=== PATIENT | female | born 1965 | race Caucasian/White ===

== ENCOUNTER 2020-11-23 21:56 | Emergency (ER) | payer MEDICAID, SELFPAY ==
[2020-11-23 22:24] VITALS: BP 177/110; PULSE 92; RESP 17; O2SAT 99; BMI 24.2
--- NOTE | 2020-11-23 23:13 | PC.NURSE ---
Pt found sitting upright in bed, Bulgarian speaking only. Pt reports receiving a Tetanus shot to right deltoid today, reports redness and pain to site with difficulty swallowing and pain to throat. 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 Pt speaking full sentences, does not appear to be in any distress. Awaiting primary MD jose.
--- NOTE | 2020-11-23 23:52 | PC.NURSE ---
at bedside for primary eval.
[2020-11-24] VITALS: BP 164/95; PULSE 84; RESP 16; TEMP 36.4; O2SAT 98
--- NOTE | 2020-11-24 00:01 | ED_ITS ---
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 Patient received her tetanus shot in the right arm at the PCP office today, patient has been having pain in the side of the injection, feels burning sensation in the left side of the neck, symptoms started after was given a tetanus shot on today at PCP office, patient declined any shortness of breath, decline wheezing, declined abdominal pain or chest pain. No rash, no itching. Related Data Allergies Allergy/AdvReac Type Severity Reaction Status Date / Time No Known Allergies Allergy Verified 11/23/20 22:24 Review of Systems Review of Systems: All other systems are reviewed and are negative Constitutional: Reports as per HPI and Reports no additional constitutional complaints Eyes: Reports as per HPI and Reports no additional eye complaints Reports system reviewed and no additional complaints, except as documented Cardiovascular: Reports as per HPI and Reports no additional cardiovascular complaints Respiratory: Reports as per HPI and Reports no additional respiratory complaints Gastrointestinal: Reports as per HPI and Reports no additional gastrointestinal complaints Genitourinary: Reports no additional female genitourinary complaints Musculoskeletal: Reports no additional musculoskeletal complaints Skin/Breast: Reports system reviewed and no additional complaints, except as docu Psychiatric: Reports no additional psychiatric complaints Endocrine: Reports no additional endocrine complaints Hematologic/Lymphatic: Reports no additional hematologic/lymphatic complaints Allergic/Immunologic: Reports no additional allergic/immunologic complaints Reports system reviewed and no additional complaints, except as documented and Reports Abnormal speech present [facility] Past Medical History Medical History Hypertension Hypothyroid Thyroid nodule Surgical History H/O: hysterectomy Social History Social History Advance Directives: No Patient : No Physical Exam Vital Signs: Vital Signs: Last Vital Signs Pulse 92 11/23/20 22:24 Resp 17 11/23/20 22:24 BP 177/110 H 11/23/20 22:24 Pulse Ox 99 11/23/20 22:24 Body Mass Index 24.2 Vital signs have been reviewed as appeared to be correct. Blood pressure elevated. Heart rate normal. Respiration rate normal. Temperature normal. Oxygen saturation normal. Appearance: Alert. Oriented X3. No acute distress. Head: Normal external exam. Normocephalic. Atraumatic. No Shin signs noted. No raccoon eyes noted Eyes: PERRLA. EOMI. Conjunctiva and sclera normal. Eyelids normal. ENT: TM's Normal. Pharynx normal. Uvula midline. Moist mucous membranes. No trismus noted. No drooling noted. No muffled voice noted. Neck: Normal inspection. Neck supple. FROM. No adenopathy. Thyroid Normal. No meningeal signs. No neck mass noted. CVS: Normal heart rate and rhythm. Heart sound normal. No murmurs noted. Pulses normal throughout. Respiratory: No respiratory distress. Painless inspiration. Breath sounds normal. No wheezes/rales/rhonchi noted. Chest nontender. No accessory muscle usage noted or decreased air movement noted. Abdomen: Soft and nontender. Bowel sounds normal in all 4 quadrants. No distention noted. No organomegaly noted. No visible injury noted. Back: No CVA tenderness. Full range of motion noted. Skin: Skin warm and dry. Normal skin color. Normal skin turgor. No rashes/lesions/lacerations noted. Extremities: No lower extremity edema. Extremities exhibit normal range of motion. Extremities nontender. Neuro: Oriented X 3. Cranial nerve exam: II-XII are grossly intact No motor deficit. No sensory deficit. Reflexes normal. Course Course Course Narrative: Assessment and plan. 55-year-old female came in for a concern of allergic reaction to tetanus shot patient received today at PCP office. Physical exam showed no obvious allergic reaction. Discharge Plan Discharge Clinical Impression: Vaccination complication Qualifiers: Encounter type: initial encounter Qualified Code(s): T88.1XXA - Other complications following immunization, not elsewhere classified, initial encounter Patient Disposition: Home, Self-Care Instructions: Adverse Drug Reaction (ED) Referrals: Shahana Bell NP [Primary Care Provider] - 2 days
[2020-11-24] MEDS: diphenhydrAMINE HCL 25 MG TABLET PO (00:11)
== END 2020-11-24 00:14 | disposition home or self-care (01) ==
PROVIDERS: Emergency Provider Emergency Medicine; PCP Nurse Practitioner Family
DX: T88.1XXA Other complications following immunization, not elsewhere classified, initial encounter (principal); L27.0 Generalized skin eruption due to drugs and medicaments taken internally; Z79.899 Other long term (current) drug therapy
CPT/HCPCS: 99283; Q0163